=== PATIENT | male | born 1990 | race Caucasian/White ===

== ENCOUNTER 2022-08-14 09:16 | Outpatient (REF) | payer OTHER, SELFPAY ==
--- NOTE | ~2022-08-14 | XR_ITS ---
EXAMINATION: XR SACROILIAC JOINTS CLINICAL INFORMATION: M25.551 - Pain in right hip COMPARISON: None. TECHNIQUE: 3 views of the sacroiliac joints FINDINGS: The SI joints show no erosive change or ankylosis or definite subchondral sclerosis. The oblique views show no L5 spondylolysis. XR/XR sacroiliac joint min 3V IMPRESSION: Unremarkable SI joints.
== END 2022-08-14 09:17 | disposition home or self-care (01) ==
LOC: HO.XRAY 09:16
PROVIDERS: PCP Internal Medicine; Visit Provider Internal Medicine Rheumatology
DX: M25.551 Pain in right hip (principal); M25.552 Pain in left hip
CPT/HCPCS: 72202; 99202

== ENCOUNTER 2022-08-14 10:48 | Outpatient (REF) | payer OTHER, SELFPAY ==
[2022-08-14 13:21] LABS: MANUAL DIFF FLAG NO
[2022-08-14 13:24] LABS: Basophils Absolute Auto 0.1 X10*3/uL (0.0-0.2); Basophils Percent Auto 0.9 % (0-2); Eosinophils Absolute Auto 0.1 X10*3/uL (0.0-0.4); Eosinophils Percent Auto 1.5 % (0-4); Hematocrit 46.9 % (42.0-52.0); Hemoglobin 16.1 g/dl (14.0-18.0); Imm Gran Abs Auto 0.14 X10*3/uL (0.00-0.03); Imm Gran Pct Auto 2.1 % (0.0-0.4); Lymphocytes Absolute Auto 1.7 X10*3/uL (1.2-4.9); Lymphocytes Percent Auto 25.1 % (20-40); Mean Corpuscular HGB Conc 34.3 g/dl (31.0-36.0); Mean Corpuscular Hemoglobin 30.6 pg (27.0-33.0); Mean Platelet Volume 10.7 fL (9.4-12.4); Monocytes Absolute Auto 0.7 X10*3/uL (0.1-1.2); Monocytes Percent Auto 9.6 % (2-11); Neutrophils Absolute Auto 4.1 x10*3/uL (2.0-8.3); Neutrophils Percent Auto 60.8 % (45-73); Platelet Count 259 X10*3/uL (160-400); Red Blood Count 5.27 X10*6/uL (4.60-5.80); Red Cell Distribution Width 12.5 % (11.0-16.0); White Blood Count 6.8 X10*3/uL (4.8-10.8)
[2022-08-14 13:55] LABS: Alanine Aminotransferase 60 U/L (0-40); Albumin Level 4.5 g/dL (3.5-5.0); Alkaline Phosphatase 70 U/L (39-117); Anion Gap 13 (12-20); Aspartate Amino Transferase 28 U/L (5-37); Bilirubin Total 1.9 mg/dL (0.0-1.0); Blood Urea Nitrogen 16 mg/dL (9-16); C Reactive Protein 0.46 mg/dL (< or = 0.50); Calcium 9.3 mg/dL (8.4-10.2); Carbon Dioxide 26 mmol/L (22-29); Chloride 105 mmol/L (96-108); Estimated Glomerular Filt Rate > 60; Glucose Random 114 mg/dL (60-115); Potassium 4.2 mmol/L (3.3-5.1); Sodium 140 mmol/L (135-145); Total Protein 6.8 g/dL (6.5-8.0)
[2022-08-14 14:05] LABS: Erythrocyte Sedimentation Rate 3 MM/HR (0-15)
[2022-08-15 06:04] LABS: HBc Num1 0.05 S/CO (0.00-0.79); Hepatitis A Antibody IgM 0.13 Index (0-0.79); Hepatitis B Core Antibody Nonreactive (Nonreactive); ~HepC Num1 0.06 S/CO (0.00-0.79); ~Hepatitis A Antibody IgM Nonreactive (Nonreactive); ~Hepatitis C Antibody Nonreactive (Nonreactive)
[2022-08-15 06:09] LABS: HBS Num1 285.82 mIU/mL (0-7.99); HBsAGNum1 0.49 S/CO (0.00-0.99); Hepatitis B Surface Antigen Negative (Negative); ~Hepatitis B Surface Antibody REACTIVE (Nonreactive)
[2022-08-16 06:58] LABS: Lyme Blot 5.46 index
[2022-08-16 22:38] LABS: TS Negative Control Passed; TS Panel A 0; TS Panel B 0; TS Positive Control Passed; TSpotTB Negative (Negative)
[2022-08-17 14:48] LABS: Cyclic Citrullinated Peptide <16 UNITS
[2022-08-20 08:03] LABS: Lyme Abs Screen POSITIVE
[2022-08-20 08:09] LABS: 18 KD (IgG) Band REACTIVE; 23 KD (IgG) Band NON-REACTIVE; 23 KD (IgM) Band NON-REACTIVE; 28 KD (IgG) Band NON-REACTIVE; 30 KD (IgG) Band NON-REACTIVE; 39 KD (IgM) Band NON-REACTIVE; 39KD (IgG) Band NON-REACTIVE; 41 KD (IgM) Band NON-REACTIVE; 41KD (IgG) Band NON-REACTIVE; 45 KD (IgG) Band NON-REACTIVE; 58 KD (IgG) Band NON-REACTIVE; 66 KD (IgG) Band NON-REACTIVE; 93 KD (IgG) Band NON-REACTIVE; Lyme IgG Blot Interp NEGATIVE (NEGATIVE); Lyme IgM Blot Interp NEGATIVE (NEGATIVE)
== END 2022-08-14 10:49 | disposition home or self-care (01) ==
LOC: HO.10HDL 10:48
PROVIDERS: Visit Provider Internal Medicine Rheumatology
DX: M25.531 Pain in right wrist (principal); M54.9 Dorsalgia, unspecified; M25.551 Pain in right hip; M25.552 Pain in left hip; Z79.899 Other long term (current) drug therapy
CPT/HCPCS: 36415; 80053; 85025; 85652; 86140; 86200; 86481; 86617; 86618; 86704; 86706; 86709; 86803; 87340

== ENCOUNTER → 2022-08-27 13:54 | Outpatient (BNVA) | payer OTHER, SELFPAY | PROVIDERS: PCP Internal Medicine; Visit Provider Internal Medicine Rheumatology | DX: L40.9 Psoriasis, unspecified (principal); M79.671 Pain in right foot; M79.672 Pain in left foot; M54.9 Dorsalgia, unspecified; K29.70 Gastritis, unspecified, without bleeding; Z79.899 Other long term (current) drug therapy | CPT/HCPCS: 99212 ==

== ENCOUNTER 2022-09-17 15:07 | Outpatient (REF) | payer OTHER, SELFPAY ==
--- NOTE | ~2022-09-17 | MR_ITS ---
EXAMINATION: MRI SACROILIAC JOINTS WITHOUT CONTRAST CLINICAL INFORMATION: Low back pain. Psoriasis. COMPARISON: Radiographs 08/14/2022 TECHNIQUE: MRI without contrast is performed on the sacroiliac joints. FINDINGS: No sacroiliac joint effusion, edema, or erosion. No ankylosis. No significant degenerative findings. Normal alignment of the sacrum and coccyx with no acute osseous abnormality. No acute muscle strain or tear. L5-S1 degenerative disc disease with a moderately sized right paracentral disc protrusion. MR/MR sacroiliac joint FANNY wo con IMPRESSION: 1. Normal sacroiliac joints. 2. L5-S1 degenerative disc disease with a moderately sized right paracentral disc protrusion. Consider dedicated lumbar spine MRI to further evaluate.
== END 2022-09-17 15:08 | disposition home or self-care (01) ==
LOC: HO.MRI 15:07
PROVIDERS: PCP Internal Medicine; Visit Provider Internal Medicine Rheumatology
DX: M54.9 Dorsalgia, unspecified (principal); L40.9 Psoriasis, unspecified
CPT/HCPCS: 72195

== ENCOUNTER → 2022-10-25 14:21 | Outpatient (BNVA) | payer OTHER, SELFPAY | PROVIDERS: PCP Internal Medicine; Visit Provider Nurse Practitioner Family | DX: M51.26 Other intervertebral disc displacement, lumbar region (principal); M54.16 Radiculopathy, lumbar region; M51.36 Other intervertebral disc degeneration, lumbar region; M62.830 Muscle spasm of back; G89.4 Chronic pain syndrome | CPT/HCPCS: 99202 ==

== ENCOUNTER → 2022-11-01 09:45 | Outpatient (BNVA) | payer OTHER, SELFPAY | PROVIDERS: PCP Internal Medicine; Visit Provider Internal Medicine Rheumatology | DX: L40.9 Psoriasis, unspecified (principal); M51.26 Other intervertebral disc displacement, lumbar region | CPT/HCPCS: 99212 ==

== ENCOUNTER 2022-12-01 09:50 | Outpatient (REF) | payer OTHER, SELFPAY | END 2022-12-01 09:51 | disposition home or self-care (01) | LOC: HO.MRI 09:50 | PROVIDERS: PCP Internal Medicine; Visit Provider Nurse Practitioner Family | DX: M51.26 Other intervertebral disc displacement, lumbar region (principal); M54.16 Radiculopathy, lumbar region; M51.36 Other intervertebral disc degeneration, lumbar region | CPT/HCPCS: 72148 ==

== ENCOUNTER 2022-12-06 11:39 | Outpatient (AMB) | payer OTHER, SELFPAY ==
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
[2022-12-06 11:42] VITALS: BP 133/80; PULSE 87; O2SAT 97; BMI 37.2
== END 2022-12-06 11:55 | disposition home or self-care (01) ==
PROVIDERS: PCP Internal Medicine; Visit Provider Nurse Practitioner Family
DX: M51.36 Other intervertebral disc degeneration, lumbar region (principal); M51.26 Other intervertebral disc displacement, lumbar region; M54.16 Radiculopathy, lumbar region
CPT/HCPCS: 99214

== ENCOUNTER → 2022-12-06 11:39 | Outpatient (BNVA) | payer OTHER, SELFPAY | PROVIDERS: PCP Internal Medicine; Visit Provider Nurse Practitioner Family | DX: M51.36 Other intervertebral disc degeneration, lumbar region (principal); M51.26 Other intervertebral disc displacement, lumbar region; M54.16 Radiculopathy, lumbar region; Z79.899 Other long term (current) drug therapy | CPT/HCPCS: 99212 ==

== ENCOUNTER 2023-01-23 06:03 | Outpatient (REF) | payer OTHER, SELFPAY ==
--- NOTE | ~2023-01-23 | FL_ITS ---
EXAMINATION: XR FLUOROSCOPY WITH IMAGES CLINICAL INFORMATION: Intervertebral disc displacement . COMPARISON: MR lumbar spine 12/01/2022. TECHNIQUE: Fluoroscopy Supervised By: Dr. Campos. Fluoroscopy Time: 0.6 minutes. Cumulative Dose: 32.4 mGy. DAP: 0.281 Gycm2. Images: 3. FL/FL guidance in treatment room FINDINGS/IMPRESSION: Lateral intraoperative fluoroscopic image demonstrating a surgical marker overlying the posterior elements at the level of L5-S1. Subsequent frontal intraoperative fluoroscopic images demonstrating surgical markers with radiopaque contrast overlying the lateral aspect of the L5 vertebral body bilaterally. A radiologist was not present in this procedure. Recommend correlation with intraoperative report for additional details.
== END 2023-01-23 06:04 | disposition home or self-care (01) ==
LOC: CF 06:03
PROVIDERS: Visit Provider Internal Medicine
DX: M51.26 Other intervertebral disc displacement, lumbar region (principal); M54.16 Radiculopathy, lumbar region
CPT/HCPCS: 64483; 64484; J1040; J1100; J3301; Q9967

== ENCOUNTER 2023-01-23 07:40 | Outpatient (AMB) | payer OTHER, SELFPAY ==
[2023-01-23 07:50] VITALS: BP 132/88; PULSE 82; RESP 14; O2SAT 94
--- NOTE | 2023-01-23 07:50 | MHC.OFFVIS ---
Intake Vital Signs 01/23/23 07:50 01/23/23 08:24 BP 132/88 138/82 Blood Pressure Location Rt brachial Rt brachial Position Sitting Sitting Respiration 14 14 Pulse 82 84 Pulse Source Pulse Oximeter Pulse Oximeter Pulse Oximetry (%) 94 94 Oxygen Delivery Method Room Air Room Air Intake Visit Reasons: [place] L5-S1 TFESI Intake Note: Pt states he has been cleared by his shoulder surgeon and physical therapist to lay on his stomach for procedure Allergies No Known Allergies Allergy (Verified 01/23/23 07:50) HPI Tacos L5-S1 TFESI HPI Details Patient presents for scheduled procedure. Denies any recent cough, cold, infection, fever or other significant changes in medical history since last office visit. [facility] Medical History (Updated 11/01/22 @ 07:29 by William Prado MD) Chronic pain syndrome Hypertension Surgical History H/O rotator cuff surgery Family History Father Hypertension Paternal Grandmother Hypertension Arthritis Brother Hypertension Social History Household Members: Spouse Alcohol intake: current Alcohol intake frequency: holidays/special occasions only Patient Tobacco Use Status: Former Tobacco user Quit Date: 6 years Tobacco use type: Cigarette Physical Exam Vital Signs: Last Vital Signs Pulse 84 01/23/23 08:24 Resp 14 01/23/23 08:24 BP 138/82 01/23/23 08:24 Pulse Ox 94 01/23/23 08:24 Oxygen Delivery Method Room Air 01/23/23 08:24 Office Procedures Details: Transforaminal epidural steroid injection, Bilateral L5/S1 After obtaining written consent, pre-procedure blood pressure and heart rate were stable and recorded in the nursing record. The patient was placed in the prone position on the fluoroscopy table. The lumbosacral area was prepped with chloraprep, allowed to dry and draped in sterile fashion. Using fluoroscopy, the skin overlying our target was anesthetized with 0.5% lidocaine. A 22 gauge 5 inch spinal needle was advanced to the safe triangle in the upper pole of the right L5 foramen. No paresthesias were elicited with needle placement and aspiration was negative for blood and CSF. Correct needle position was confirmed with approximately 1 ml contrast dye (Isovue 300 mg/ml) injected under real-time fluoroscopy. No evidence of vascular or intrathecal uptake was seen and there was both epidural and peripheral spread of the contrast agent. 5 mg dexamethasone plus 1 ml containing 0.5% lidocaine was slowly injected. The needle was flushed and removed. The same procedure was repeated for the other side. The skin was cleansed and a sterile bandages were applied. The patient tolerated the procedure well and no complications were encountered. Following the procedure the patient's vital signs were stable. The patient was discharged home in good condition with post-procedural instructions. Time Out: Immediately prior to the procedure, the following was verbally confirmed that there is a signed consent form and that the correct patient, planned procedure, site and side are consistent with documentation and that necessary equipment and/or blood products are available prior to the start of the case. Complications: none EBL: <5 cc 93203 - Lumbar/Sacral 24471 - Lumbar/Sacral, additional level Procedure code (CPT) selection complete Assessment & Plan Assessment & Plan (1) Lumbar radiculopathy: Code(s): M54.16 - Radiculopathy, lumbar region Plan Patient is status post bilateral L5 TFESIs. Patient tolerated procedure well and was discharged home in stable condition with discharge instructions. All questions were answered. We will follow-up via telephone or in clinic to assess response to therapy. A follow-up appointment was made during today's visit. Orders: Orders FL guidance in treatment room Today M51.26 - Other intervertebral disc displacement, lumbar region Coding Level of Care Code Procedure Only Diagnoses Lumbar radiculopathy M54.16 CPT Codes Transforaminal Epidural Steroid Inj - TESI 3: 66808 - Lumbar/Sacral ([id number]) Transforaminal Epidural Steroid Inj - TESI 4: 69010 - Lumbar/Sacral, additional level ([id number])
[2023-01-23 08:24] VITALS: BP 138/82; PULSE 84; RESP 14; O2SAT 94
== END 2023-01-23 08:28 | disposition home or self-care (01) ==
LOC: HO.PMCPRC 07:40
PROVIDERS: PCP Internal Medicine; Visit Provider Internal Medicine
DX: M54.16 Radiculopathy, lumbar region (principal)
CPT/HCPCS: 64483; 64484

== ENCOUNTER 2023-02-21 08:29 | Outpatient (AMB) | payer OTHER, SELFPAY ==
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
[2023-02-21 08:36] VITALS: BP 113/63; PULSE 74; O2SAT 98; BMI 37.7
== END 2023-02-21 08:50 | disposition home or self-care (01) ==
PROVIDERS: PCP Internal Medicine; Visit Provider Nurse Practitioner Family
DX: M51.36 Other intervertebral disc degeneration, lumbar region (principal); M54.16 Radiculopathy, lumbar region; M51.26 Other intervertebral disc displacement, lumbar region; M24.28 Disorder of ligament, vertebrae
CPT/HCPCS: 99214

== ENCOUNTER → 2023-02-21 08:29 | Outpatient (BNVA) | payer OTHER, SELFPAY | PROVIDERS: PCP Internal Medicine; Visit Provider Nurse Practitioner Family | DX: M51.36 Other intervertebral disc degeneration, lumbar region (principal); M54.16 Radiculopathy, lumbar region; M51.26 Other intervertebral disc displacement, lumbar region; M24.28 Disorder of ligament, vertebrae; Z98.890 Other specified postprocedural states | CPT/HCPCS: 99212 ==